=== PATIENT | male | born 1950 | race Caucasian/White ===

== ENCOUNTER → 2017-03-21 | Outpatient (CLI) | payer OTHER ==
[~2017-03-21] MED LIST: AMITRIPTYLINE H10 M3 PO; BACLOFEN 10MG T10 MG PO; CARISOPRODOL 3350 MG PO; CRESTOR5 MG PO; CYMBALTA60 MG PO; FEXOFENADINE PO; FLOMAX0.4 MG PO; FLONASE 0.05%50 MCG NASAL; HYDROCODON-ACE1 EAC8 PO; INHALER; LIORESAL 10 MG10 MG PO; MULTIVITAMIN W1 EAC1 PO; NEURONTIN600 MG PO; PROAIR HFA8.5 GM INH; STIOLTO RESPIMAT4 GM INH
== END ==
LOC: M.RAD 15:15
DX: R05 Cough (principal); R09.89 Other specified symptoms and signs involving the circulatory and respiratory systems; R07.89 Other chest pain

== ENCOUNTER → 2017-07-19 | Outpatient (CLI) | payer OTHER ==
--- NOTE | 2017-08-11 15:18 | PAINCON ---
[address] [address] PAIN MANAGEMENT CONSULTATION Name: STEPHANIE LOMBARDI Room: [facility] Yamila.#: [id number] Admission: 07/19/17 Attend Phys: Samina Henderson MD Discharge: Date of : 52 Report #: [id number] THIS REPORT FOR: //name// CC: Noemi Henderson DATE OF SERVICE: 07/19/2017 CHIEF COMPLAINT: Constant spasms of the low back and there is popping and moving sensation in my back, it has been fused before. FOLLOWUP HISTORY: The patient is a 66-year-old gentleman who has been referred to the pain clinic for evaluation. The patient has been having pain and discomfort, which has been problematic since about April 2017. He has a history of back problems. He has undergone surgery for this. Notes that his pain is worse when he is active as well as when he is bending. He states that he had a surgery in the low back area. Surgery entail the lower approximately 3-4 area. The patient after the surgery was noted to have some worsening of his symptoms. States that he had some paralysis noted. He was then taken to surgery, second time. The initial surgery was L3 through S1. He then underwent L1-L2 as well. This has left him with fusion of L1 through S1. He has noted some popping sensation in the upper portion of his back. This has caused him some consternation. He has been experiencing some muscle spasms. Does have a spinal cord stimulator in place. He thinks it is about 50% effective in helping with pain and discomfort. 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 States that he has some ____ numbness. Has had some numbness on the right side of his anus. His current pain score is a 4/10. It can vary between 2-7 during the course of time. ALLERGIES: No known drug allergies. MEDICATIONS: Albuterol, ProAir 1 puff, Baclofen 10 mg t.i.d. 2 tablets t.i.d., Soma 350 mg t.i.d., Cymbalta 60 mg b.i.d., Flonase 0.05% nasal spray, Neurontin 600 mg 1-1/2 tablet t.i.d., hydrocodone 7.5 mg q.8 hours p.r.n., folic acid/multivitamin, Crestor 5 mg, Flomax 0.4 mg, Stiolto Respimat inhaler spray 2 puffs b.i.d., and fexofenadine 10 mg t.i.d. PAST MEDICAL HISTORY: Asthma, COPD, joint disease/arthritis of the knees, and skin cancer. PAST SURGICAL HISTORY: 1. On 06/21/2011, spinal cord stimulator implant. 2. On 09/15/2008, drain reinserted, [place] [address] PAIN MANAGEMENT CONSULTATION Name: STEPHANIE LOMBARDI [id number] Admission: 07/19/17 Attend Phys: Samina Henderson MD Discharge: Date of : 52 Report #: [id number] 3. On 09/14/2008, L1 through S1 fusion. 4. On 09/11/2008, L3 through S1 fusion. 5. On 05/22/2008, L1-L2 open laminectomy, L3-L4 laminectomy, foraminotomy, and microdiskectomy. 6. In 2005, right shoulder rotator cuff, labrum, biceps tendon repair. 7. In July 2002, anterior cervical disk fusion C5, C6, C7.. 8. In 1991, right knee ACL reconstruction. 9. In 1986, deviated septum repair. 10. In 1984, left knee arthroscopy, meniscus repair. 11. In 1977, vasectomy. 12. In 1970, right knee meniscus repair. 13. In 1959, appendectomy. 14. In 1957, tonsillectomy. 15. In 1954, adhesion removal. 16. In 1953, hernia repair. SOCIAL HISTORY: The patient is a retired community outreach worker, retired in 2008. REVIEW OF SYSTEMS: CONSTITUTIONAL: Generally good health. A 12-point review, wears glasses, COPD, shortness of breath, joint pain, joint stiffness, back pain, numbness, and tingling sensation. LABORATORY DATA: No new laboratory values are available at the time of our interview. X-ray of lumbar dated 12/15/2016, lumbar spine radiographs finding, no compression fracture. Lumbar lordosis normal. No anterior or retrolisthesis. Mild disk space narrowing T12-L1. There is bilateral pedicle screw and sebastian fixation L1 through S1. No evidence of hardware complication. Mild spondylosis. No postoperative complications. CT of the lumbar spine dated 06/22/2017: 1. L1-L2, there are surgical changes of laminectomy and posterior fusion. There is no evidence of central canal or neural foraminal stenosis. Thecal sac 1.5 cm AP. 2. L2-L3, there are surgical changes of laminectomy and posterior fusion. There is no evidence of central or neural foraminal stenosis. Thecal sac 1.5 cm AP. 3. L3-L4, there are surgical changes of laminectomy and posterior fusion. There is no evidence of central canal or neural foraminal stenosis. Thecal sac 1.3 cm AP. 4. L4-L5, there are surgical changes of laminectomy and posterior fusion. There is no evidence of central canal or left neural foraminal narrowing. Mild right foraminal endplate osteophyte formation results in mild narrowing of the anterior inferior right neural foramen. Thecal sac 1.2 cm AP. 5. L5-S1. There are surgical changes of laminectomy and posterior fusion. There is no evidence of central canal or neural foraminal narrowing. Thecal sac 1.5 cm AP. [place] [address] PAIN MANAGEMENT CONSULTATION Name: STEPHANIE LOMBARDI Room: [facility]#: [id number] Admission: 07/19/17 Attend Phys: Samina Hendersno MD Discharge: Date of : 52 Report #: [id number] PAIN CLINIC ASSESSMENT: 1. History of osteoarthritic changes in the lower back with surgeries. 2. Height 5 feet 10, weight 221 pounds, BMI 31. 3. Vital signs: Blood pressure 120/76, heart rate 82, respiratory rate 16, room air saturation 95, temperature 98.4. 4. Pain intensity 04/23. 5. Fall risk. The patient has not fallen in the last 3 months. 6. Blood thinner. The patient is not on a blood thinning agent. 7. History of hypertension. The patient is not being treated for hypertension. 8. Opioid therapy greater than 6 weeks. The patient is not routinely on an opioid medication. 9. Risk assessment tool. 10. Functional assessment tool. 11. Recreational drug use. The patient denies use of recreational drugs. 12. Tobacco: The patient does have COPD. Denies use of tobacco at this juncture. 13. Alcohol use. The patient denies use of alcoholic beverages. PHYSICAL EXAMINATION: GENERAL: The patient is a well-developed white male, appears his stated age. He is alert and oriented x 3. Affect is appropriate. HEENT: Normocephalic, atraumatic. Extraocular eye muscles intact. Sclerae nonicteric. Mucous membranes are moist. Hearing within normal limits. NECK: Without adenopathy. Good range of motion. HEART: Regular rate. S1, S2. ABDOMEN: Nontender. MUSCULOSKELETAL: Without significant kyphosis or scoliosis. The patient has well-healed scar in the midline portion of his back from L1 to the dorsum of the sacrum. Has complained of pain and discomfort, burning discomfort in the left and right paraspinous muscle area in the lumbar areas. Has some pain and discomfort radiating in the L3-L4 area of his thigh left and right. Has a perception of some movement in the upper lumbar area with shifting of his back. IMPRESSION: 1. History of low back fusion from L1 through S1. 2. Allergic rhinitis. 3. Idiopathic peripheral neuropathy. 4. Mixed hyperlipidemia. 5. Spinal stenosis of the lumbar area. 6. Mixed anxiety disorder. 7. Obstructive sleep apnea. 8. Seasonal allergic rhinitis. 9. Chronic obstructive pulmonary disease. RECOMMENDATION: The patient has pain and discomfort radiating down into his low [facility] [address] [place] [address] PAIN MANAGEMENT CONSULTATION Name: STEPHANIE LOMBARDI Room: [facility] Jaydon#: [id number] Admission: 07/19/17 Attend Phys: Samina Henderson MD Discharge: Date of : 52 Report #: [id number] back with some pain radiating above the L3-L4 dermatomal distribution. The patient has had significant surgery in his low back area. He is concerned about the perceive movement in his low back area. He is not riding his lawnmower and other activities which caused some mid back discomfort. He does experience muscle spasms. We will have the patient try amitriptyline 10 mg 2 tablets at bedtime. We will have him try baclofen. We may consider transforaminal injections in the area of the L3-L4 dermatomal distribution to see whether or not the pain in his legs would improve. The patient continues to use his stimulator. Somewhat of a difficult case given that the patient had such an extensive amount of surgery and scar tissue which can develop after surgery in his low back area. The patient will continue with his hydrocodone. We would like to thank you for letting us participate in his care. Hopefully, we can find some remedies to help improve his level of comfort. <ELECTRONICALLY SIGNED> By: Samina Henderson MD 08/11/17 1518 1558 Lilian Henderson MD /[facility]
== END ==
LOC: M.PC 01:58
DX: M48.061 Spinal stenosis, lumbar region without neurogenic claudication (principal); J44.9 Chronic obstructive pulmonary disease, unspecified; E78.2 Mixed hyperlipidemia; M54.5 Low back pain; G60.9 Hereditary and idiopathic neuropathy, unspecified; G47.33 Obstructive sleep apnea (adult) (pediatric); F41.3 Other mixed anxiety disorders; M13.862 Other specified arthritis, left knee; M13.861 Other specified arthritis, right knee

== ENCOUNTER → 2017-08-16 | Outpatient (CLI) | payer OTHER ==
--- NOTE | 2017-09-14 14:16 | PAINCON ---
[address] [address] PAIN MANAGEMENT CONSULTATION Name: STEPHANIE LOMBARDI Room: [facility] ERIKA Jaydon#: [id number] Admission: 08/16/17 Attend Phys: Samina Henderson MD Discharge: Date of : 52 Report #: [id number] THIS REPORT FOR: //name// CC: Noemi Henderson DATE OF SERVICE: 08/16/2017 FOLLOWUP COMPLAINT: Here for an epidural injection. FOLLOWUP HISTORY: The patient is a 66-year-old gentleman who has been seen in the pain clinic because of chronic pain. He has had problems with his low back. He has undergone back surgery with placement of pedicle screws and rodding. He rates his pain as a 5/10 today. He feels like the pain is a little worse. He desire to have an epidural steroid injection to see whether or not his pain would improve. He has been able to do gardening for any period of time. He continues to use of his medications and muscle relaxants. He finds that hydrocodone and gabapentin are helpful, but his pain still continues to be problematic. Walking, sitting, standing, going from a sitting to standing, bending and lifting are all problematic. Finds his medications helpful. As you recall, he does have a dorsal column stimulator in place. He does feel that there is some benefit from this. He has returned for treatment today. ALLERGIES: No known drug allergies. MEDICATIONS: Albuterol, ProAir 1 puff, baclofen 10 mg 2 tablets t.i.d., Soma 350 mg t.i.d., Cymbalta 60 mg b.i.d., Flonase 0.05% nasal spray, and Neurontin 600 mg 1-1/2 tablet t.i.d., hydrocodone 7.5 mg q.8 hours p.r.n., folic acid/multivitamin, Crestor 5 mg, Flonase 0.4 mg, Stiolto Respimat inhaler spray 2 puffs b.i.d., fexofenadine 10 mg t.i.d. PAIN CLINIC ASSESSMENT: 1. History of osteoarthritis. The patient does have arthritic change in the lower portion of his back and has undergone surgeries: 2. Height 5 feet 10 inches, weight 222 pounds, BMI is 31. 3. Vital signs: Blood pressure 133/78, heart rate 75, respiratory rate 16, room air saturation 94%, temperature 98.1. 4. Pain score 05/10. 5. Fall risk. The patient has not fallen in the last 3 months. 6. Blood thinner. The patient is not on a blood thinning medication. 7. History of hypertension. The patient is not being treated for hypertension. 8. Opioid therapy greater than 6 weeks. The patient is not routinely using opioid medication. 9. Risk assessment tool. 10. Functional assessment tool. 11. Recreational drug use. The patient denies [place] [address] PAIN MANAGEMENT CONSULTATION Name: STEPHANIE LOMBARDI Room: [facility]#: [id number] Admission: 08/16/17 Attend Phys: Samina Henderson MD Discharge: Date of : 52 Report #: [id number] 12. Tobacco: The patient denies use of tobacco at this juncture. He does have COPD. 13. Alcohol use. The patient denies use of alcoholic beverages. PHYSICAL EXAMINATION: GENERAL: The patient is a well-developed white male, appears stated age. He is alert and oriented x 3. Affect is appropriate. HEENT: Normocephalic, atraumatic. Extraocular eye muscles intact. Sclerae nonicteric. Mucous membranes are moist. Hearing within normal limits. NECK: Without adenopathy. Good range of motion. HEART: Regular rate. S1, S2. ABDOMEN: Nontender. MUSCULOSKELETAL: Without significant kyphosis or scoliosis. The patient does have some well-healed scar in the midline portion of his back from approximately L1 down to the dorsum of sacrum. He complains of pain and discomfort. Complains of a burning discomfort in his left and right paraspinous muscle area. He has pain and discomfort radiating down the L3-L4 area and L4-L5 distribution today. He still has a perception that some of the bones in his back are shifting with motion. IMPRESSION: 1. History of low back fusion, L1 through S1. 2. Allergic rhinitis. 3. Idiopathic peripheral neuropathy. 4. Mixed hyperlipidemia. 5. Spinal stenosis of lumbar spine. 6. Mixed anxiety disorder. 7. Obstructive sleep apnea. 8. Seasonal allergic rhinitis. 9. Chronic obstructive pulmonary disease. RECOMMENDATIONS: We discussed treatment options with the patient. Risks and benefits of a transforaminal epidural steroid injection were discussed. Possible complications of the procedure include but are not limited to infection, increased muscle soreness, headache, bleeding, worsening of pain for a paresis. The patient elects to proceed. PROCEDURE NOTE: The patient was placed in the prone position. Fluoroscopy was used to identify the L4-L5 areas, left and right with fluoroscopy. An anterior, posterior as well as lateral imaging were employed. The patient's back was sterilely prepped with a Betadine solution. It was allowed to dry. A 20-gauge spinal needle was then advanced into the appropriate area after it had been anesthetized with 0.25% bupivacaine on the left and a similar procedure with anesthetizing of the right side. Both 20-gauge spinal needles were advanced. One left and the other on the right side. After appropriate placement was noted. Using fluoroscopy in anterior, posterior as well as lateral 0.25% [place] [address] PAIN MANAGEMENT CONSULTATION Name: STEPHANIE LOMBARDI [id number] Admission: 08/16/17 Attend Phys: Samina Henderson MD Discharge: Date of : 52 Report #: [id number] bupivacaine was infiltrated. A total of 80 mg Depo-Medrol was injected on the left side and 80 mg on the right side. The patient tolerated the procedure well. He was then escorted to the Recovery Room. A Band-Aid was placed on his back. There was no bleeding. He remained there for an appropriate amount of time. A total of 25 seconds fluoroscopy time was used. The patient's pain score was 3 at the time of discharge. He will follow up in the future as needed. The patient did note some hungover type sensation. He will decrease his Elavil from 20 mg at bedtime to 10 mg and stop it if he continues to find a somewhat problematic. We would like to thank you for letting us participate in his care. We hope he continues to improve. <ELECTRONICALLY SIGNED> By: Samina Henderson MD 09/14/17 1416 1017 1926N. Bebo Henderson MD /alivia
== END | disposition home or self-care (01) ==
LOC: M.PC 05:31
DX: M51.16 Intervertebral disc disorders with radiculopathy, lumbar region (principal); J30.9 Allergic rhinitis, unspecified; E78.2 Mixed hyperlipidemia; G60.9 Hereditary and idiopathic neuropathy, unspecified; F41.3 Other mixed anxiety disorders; G47.33 Obstructive sleep apnea (adult) (pediatric); J44.9 Chronic obstructive pulmonary disease, unspecified; M19.90 Unspecified osteoarthritis, unspecified site; Z68.31 Body mass index [BMI] 31.0-31.9, adult; Z79.899 Other long term (current) drug therapy; Z98.890 Other specified postprocedural states; F11.20 Opioid dependence, uncomplicated

== ENCOUNTER → 2017-09-22 | Outpatient (CLI) | payer OTHER ==
--- NOTE | 2017-10-12 16:41 | PAINCON ---
[address] [address] PAIN MANAGEMENT CONSULTATION Name: STEPHANIE LOMBARDI Room: [facility] ERIKA Interiano#: [id number] Admission: 09/22/17 Attend Phys: Samina Henderson MD Discharge: Date of : 52 Report #: [id number] THIS REPORT FOR: //name// CC: Noemi Henderson DATE OF SERVICE: 09/22/2017 FOLLOWUP COMPLAINT: "Here for the last injection really was helpful. I would like to have another." FOLLOWUP HISTORY: The patient is a 67-year-old gentleman who has been seen in the pain clinic because of chronic pain involving his low back. He has undergone back surgery. He has a number of pedicle screws and rods in place. He rates his pain as a 3/10. He underwent a transforaminal epidural steroid injection at the last visit. He noted benefit from that. He did quite well. About 2 weeks ago, he bent over and heard a pop. Since that time, he has continued to have some pain and discomfort in the low back area. Continues to use baclofen, hydrocodone, gabapentin, and Elavil to help control his pain. Feels that he is about 80% improvement with his pain overall. At this juncture, he would like to undergo another epidural steroid injection. He had no complications from the procedure. No problem with his bowel or bladder. He also has a dorsal column stimulator in place as you recall. Feels that this continues to be beneficial as well. ALLERGIES: No known drug allergies. MEDICATIONS: Albuterol, ProAir 1 puff, baclofen 10 mg 2 tablets t.i.d., Soma 350 mg t.i.d., Cymbalta 600 mg b.i.d., Flonase 0.05% nasal spray, Neurontin 600 mg 1-1/2 tablets t.i.d., hydrocodone 7.5 mg q.8 hours, folic acid/multivitamins, Crestor 5 mg, Flonase 0.4 mg, Stiolto Respimat inhaler 2 puffs b.i.d., and fexofenadine 10 mg t.i.d. PAIN CLINIC ASSESSMENT: 1. History of osteoarthritis. The patient does have arthritic changes in the lower portion of his back and has undergone surgery. 2. Height 5 feet 10 inches, weight 220 pounds. BMI is 31. 3. Blood pressure 140/85, heart rate 80, respiratory rate 16, room air saturation 95%, temperature 98.4. 4. Pain score 3/10. 5. Fall risk. The patient has not fallen in the last 3 months. 6. Blood thinner. The patient is not on a blood thinning medication. 7. History of hypertension. The patient is not being treated for hypertension. 8. Opioid therapy greater than 6 weeks. The patient is not routinely using opioid medication. 9. Risk [place] [address] PAIN MANAGEMENT CONSULTATION Name: STEPHANIE LOMBARDI Room: [facility]#: [id number] Admission: 09/22/17 Attend Phys: Samina Henderson MD Discharge: Date of : 52 Report #: [id number] 10. Functional assessment tool. 11. Recreational drug use. The patient denies use of recreational drugs. 12. Tobacco: The patient denies use of tobacco at this juncture. He does have COPD. 13. Alcohol: The patient denies use of alcoholic beverages. PHYSICAL EXAMINATION: GENERAL: The patient is a well-developed, well-nourished white male, appears his stated age. He is alert and oriented x 3. His affect is appropriate. HEENT: Normocephalic, atraumatic. Extraocular eye muscles intact. Sclerae nonicteric. Mucous membranes are moist. Hearing is within normal limits. NECK: Without adenopathy. Good range of motion. HEART: Regular rate. S1, S2. LUNGS: Without rhonchi or rales. ABDOMEN: Nontender. MUSCULOSKELETAL: Without significant kyphosis, scoliosis or abnormality. The patient does have a well-healed scar in the lumbar area. Approximately starting at the L1 area down to the dorsum of sacrum has pain and discomfort. Complains of some pain and discomfort in the left as well as the right paraspinous muscle area. Has pain and discomfort radiating down the L3-L4 area and L4-L5 distribution. Still has a perception that bones in his back are shifting. IMPRESSION: 1. History of low back pain with fusion L1 through S1. 2. Allergic rhinitis. 3. Idiopathic peripheral neuropathy. 4. Mixed hyperlipidemia. 5. Spinal stenosis of lumbar spine. 6. Mixed anxiety disorder. 7. Obstructive sleep apnea. 8. Seasonal allergic rhinitis. 9. Chronic obstructive pulmonary disease. RECOMMENDATIONS: We discussed treatment options with the patient. Risks and benefits of transforaminal epidural steroid injection were again reviewed. Possible complications of the procedure were discussed and the patient elects to proceed. Complications include possibility of infection, bleeding, worsening of pain, no improvement in pain, nerve paralysis and the patient elects to proceed. PROCEDURE NOTE: The patient was taken to the procedure room. He was assisted in getting on the examination table. A pillow was placed under his abdomen to bolster and improved positioning. Fluoroscopy used in the anterior, posterior as well as lateral viewing were instituted. A transforaminal approach on the left and right L4 areas was performed. A total of 80 mg Depo-Medrol was placed on the left side after appropriate positioning and 80 mg of Kenalog were injected on the right side. The patient tolerated the [place] [address] PAIN MANAGEMENT CONSULTATION Name: STEPHANIE LOMBARDI Room: [facility] LettyTeri#: [id number] Admission: 09/22/17 Attend Phys: Samina Henderson MD Discharge: Date of : 52 Report #: [id number] were no complications. He remained in the pain clinic for an appropriate amount of time. He will follow up in the near future. We would like to thank you for letting us participate in his care. We hope he continues to improve. <ELECTRONICALLY SIGNED> By: Samina Henderson MD 10/12/17 1641 1833 2055N. Bebo Henderson MD /nt
== END | disposition home or self-care (01) ==
LOC: M.PC 03:26
DX: M54.16 Radiculopathy, lumbar region (principal); M48.061 Spinal stenosis, lumbar region without neurogenic claudication; E78.2 Mixed hyperlipidemia; J44.9 Chronic obstructive pulmonary disease, unspecified; G60.9 Hereditary and idiopathic neuropathy, unspecified; F41.3 Other mixed anxiety disorders; G47.33 Obstructive sleep apnea (adult) (pediatric); J30.9 Allergic rhinitis, unspecified; Z98.890 Other specified postprocedural states; Z79.899 Other long term (current) drug therapy; Z79.891 Long term (current) use of opiate analgesic

== ENCOUNTER → 2017-10-24 | Outpatient (CLI) | payer OTHER | LOC: M.RAD 17:06 | DX: J06.9 Acute upper respiratory infection, unspecified (principal); M43.25 Fusion of spine, thoracolumbar region; R09.89 Other specified symptoms and signs involving the circulatory and respiratory systems; E78.5 Hyperlipidemia, unspecified; Z87.891 Personal history of nicotine dependence ==

== ENCOUNTER → 2017-11-03 | Outpatient (CLI) | payer OTHER ==
--- NOTE | 2017-11-28 10:00 | PAINCON ---
[address] [address] PAIN MANAGEMENT CONSULTATION Name: STEPHANIE LOMBARDI Room: [facility] LettyTeri#: [id number] Admission: 11/03/17 Attend Phys: Samina Henderson MD Discharge: Date of : 52 Report #: [id number] THIS REPORT FOR: //name// CC: Noemi Henderson DATE OF SERVICE: 11/03/2017 CHIEF COMPLAINT: Low back pain. HISTORY OF PRESENT ILLNESS: The patient is a 67-year-old gentleman who has been seen in the Pain Clinic because of lumbar radiculopathy. As you recall, he has had back surgery. He has undergone placement of rods and pedicle screws in his low back area. He was seen in the past. He has undergone transforaminal epidural steroid injections and gleaned benefits from these. At this juncture, the patient is suffering from bronchitis. He is on an antibiotic at this juncture. He felt that he received 80% improvement in the pain after the first injection. He has returned today for another injection. He feels that the amitriptyline, baclofen, hydrocodone, and gabapentin are helpful. He notes worsening of pain with activity such as walking, sitting, standing, bending, and twisting. He has returned today for treatment. ALLERGIES: No known drug allergies. CURRENT MEDICATIONS: Albuterol, ProAir 1 puff, baclofen 10 mg 2 tabs t.i.d., Soma 350 mg t.i.d., Cymbalta 600 mg b.i.d., Flonase 0.05% nasal spray, Neurontin 600 mg 1-1/2 tablets t.i.d., hydrocodone 7.5 mg q.8h., folic acid, multivitamins, Crestor 5 mg, Flonase 0.4 mg, Stiolto Respimat 2 puffs b.i.d., fexofenadine 10 mg t.i.d. PAIN CLINIC ASSESSMENT/PQRS: 1. History of osteoarthritis. The patient has had arthritic changes in the lower portion of his back and has undergone surgery. 2. Height 5 feet 10 inches, weight 225 pounds, BMI is 32. 3. Vital signs: Blood pressure 128/80, heart rate 89, respiratory rate 16, room air 96, and temperature 98.1. 4. Pain score 3/10. 5. Fall history: The patient has not fallen in the last 3 months. 6. Blood thinner. The patient is not on a blood thinning medication. 7. Hypertension. The patient has not been treated for hypertension. 8. Opiate therapy greater than 6 weeks. The patient does receive medications through the Pain Clinic from 1 source. 9. Risk assessment tool. 10. Functional assessment tool. 11. Recreational drug use. The patient denies use of recreational drugs. 12. Tobacco: The [place] [address] PAIN MANAGEMENT CONSULTATION Name: STEPHANIE LOMBARDI Room: [facility]#: [id number] Admission: 11/03/17 Attend Phys: Samina Henderson MD Discharge: Date of : 52 Report #: [id number] 13. Alcohol. The patient drinks alcohol on a weekly basis. PHYSICAL EXAMINATION: GENERAL: The patient is a well-developed, well-nourished white male. Appears his stated age. He is alert and oriented x 3. His affect is appropriate. HEENT: Normocephalic, atraumatic. Extraocular eye muscles intact. Sclerae nonicteric. Mucous membranes are normal. Hearing is within normal limits. NECK: Without adenopathy or JVD. Good range of motion. HEART: Regular rate. S1, S2. LUNGS: Clear to auscultation without rales or rhonchi. ABDOMEN: Nontender. MUSCULOSKELETAL: Without significant kyphosis, scoliosis, or lordosis. The patient does have some well-healed scar in the lower portion of his back. The scar starts at approximately L1 down to the sacrum. Complains of pain and discomfort with pain that is radiating down to the left leg as well as the right paraspinous muscle area. The patient has some discomfort radiating down the L3-L4 and L4-L5 area. Does feel that there is a shifting of bones in his back. IMPRESSION: 1. History of low back pain with fusion from L1 through S1. 2. Bronchitis, now on antibiotics. 3. Allergic rhinitis. 4. Idiopathic peripheral neuropathy. 5. Hyperlipidemia. 6. Spinal stenosis of lumbar spine. 7. Mixed anxiety disorder. 8. Obstructive sleep apnea. 9. Seasonal allergic rhinitis. 10. Chronic obstructive pulmonary disease. RECOMMENDATIONS: We discussed treatment options with the patient. Risks and benefits of an epidural steroid injection were again reviewed. Possible complications of the procedure were discussed. They include, but are not limited to infection, increased muscle soreness, headache, bleeding, worsening of pain, no improvement in pain and the patient elects to proceed. We discussed with the patient the possible complications of steroid use. It can decrease one's immunity. Given that the patient is on an antibiotic, we would recommend that he refrain from an injection until he has been fully treated for his bronchitis. At that time, he will return to the Pain Clinic at which time we would then proceed with a transforaminal epidural steroid injection. [address] [address] PAIN MANAGEMENT CONSULTATION Name: STEPHANIE LOMBARDI [id number] Admission: 11/03/17 Attend Phys: Samina Henderson MD Discharge: Date of : 52 Report #: [id number] We would like to thank you for letting us participate in his care. We hope he continues to improve. <ELECTRONICALLY SIGNED> By: Samina Henderson MD 11/28/17 1000 1530 1825N. Bebo Henderson MD /nt
== END ==
LOC: M.PC 01:45
DX: J40 Bronchitis, not specified as acute or chronic (principal); M54.5 Low back pain; J30.9 Allergic rhinitis, unspecified; G60.9 Hereditary and idiopathic neuropathy, unspecified; E78.5 Hyperlipidemia, unspecified; M48.061 Spinal stenosis, lumbar region without neurogenic claudication; F41.3 Other mixed anxiety disorders; G47.33 Obstructive sleep apnea (adult) (pediatric); J44.9 Chronic obstructive pulmonary disease, unspecified

== ENCOUNTER → 2017-11-03 | Outpatient (CLI) | payer OTHER | LOC: M.RAD 13:53 | DX: R05 Cough (principal); Z79.899 Other long term (current) drug therapy ==

== ENCOUNTER → 2017-11-15 | Outpatient (CLI) | payer OTHER ==
--- NOTE | 2017-12-28 15:49 | PAINCON ---
[address] [address] PAIN MANAGEMENT CONSULTATION Name: MARIA CSTEPHANIE E Room: [facility] Yamila.#: [id number] Admission: 11/15/17 Attend Phys: Samina Henderson MD Discharge: Date of : 52 Report #: [id number] THIS REPORT FOR: //name// CC: Noemi Henderson DATE OF SERVICE: 11/15/2017 PRIMARY CARE PHYSICIAN: Noemi Munoz MD FOLLOWUP: Here for an injection in the low back. HISTORY: The patient is a 67-year-old gentleman who has been followed in the pain clinic because of lumbar radiculopathy. As you recall, he has had a number of back surgeries. He has rods as well as pedicle screws in place. He has undergone an epidural steroid injection using the transforaminal approach. He has returned for an epidural steroid injection. He gleaned about 80% improvement from his pain at the last visit. He has now returned indicating that his pain, still is quite problematic. Finds that Soma, amitriptyline, baclofen and hydrocodone along with gabapentin are beneficial. He does have a spinal cord stimulator in place. Overall, things are going reasonably well and he has returned for an injection today. ALLERGIES: No known drug allergies. MEDICATIONS: Albuterol, ProAir 1 puff, baclofen 10 mg 2 tabs p.o. t.i.d., Soma 350 mg t.i.d., Cymbalta 600 mg b.i.d., Flonase 0.05% nasal spray, Neurontin 600 mg 1-1/2 tablet t.i.d., hydrocodone 7.5 mg q.i.d., or q. 8 hours, folic acid, multivitamins, Crestor 5 mg, Flonase 0.4 mg, Stiolto Respimat 2 puffs b.i.d., and fexofenadine 10 mg t.i.d. PAIN CLINIC ASSESSMENT/PQRS: 1. History of osteoarthritis. The patient has had arthritic changes in the lower portion of his back and has undergone surgery. 2. The patient is not being treated for rheumatoid arthritis. 3. Height 5 feet 10 inches, weight 220 pounds, BMI is 31.7. 4. Vital signs: Blood pressure 132/76, heart rate 74, respiratory rate 16, room air saturation 96%, temperature 98.2. 5. Pain score 2/10. 6. Fall history: The patient has not fallen in the last 3 months. 7. Blood thinner. The patient is not on a blood thinning medication. 8. Hypertension. The patient is not being treated for hypertension. 9. Opioid therapy greater than 6 weeks. The patient does receive medication from the pain clinic from one source. 10. Risk assessment tool. 11. [place] [address] PAIN MANAGEMENT CONSULTATION Name: STEPHANIE LOMBARDI [facility] [id number] Admission: 11/15/17 Attend Phys: Samina Henderson MD Discharge: Date of : 51 Report #: [id number] 12. Recreational drug use. The patient denies use of recreational drugs. 13. Tobacco: The patient denies use of tobacco. 14. Alcohol: The patient denies alcoholic beverages other than on a weekly basis. PHYSICAL EXAMINATION: GENERAL: The patient is a well-developed, well-nourished white male. Appears his stated age. He is alert and oriented x 3. His affect is appropriate. HEENT: Normocephalic, atraumatic. Extraocular eye muscles intact. Sclerae nonicteric. Mucous membranes are moist. Hearing is within normal limits. NECK: Without adenopathy or JVD. Good range of motion. HEART: Regular rate. S1, S2. LUNGS: Clear to auscultation without rales or rhonchi. ABDOMEN: Nontender. Bowel sounds positive. MUSCULOSKELETAL: Without significant kyphosis, scoliosis or lordosis. The patient does have some well-healed scars in the lower portion of his back. These are in the midline area from L1 to the sacrum. The patient complains of pain and discomfort radiating down to the left leg as well as some pain and discomfort in the right leg in the L4-L5 distribution. Also, L3-L4, there is still some signs of discomfort. The patient has had some perception of some shift in the bones in his back. IMPRESSION: 1. History of low back pain status post fusion L4 through S1. 2. Bronchitis, improved. 3. Allergic rhinitis. 4. Idiopathic peripheral neuropathy. 5. Hyperlipidemia. 6. Spinal stenosis of the lumbar spine. 7. Mixed anxiety disorder. 8. Obstructive sleep apnea. 9. Seasonal allergic rhinitis. 10. Chronic obstructive pulmonary disease. RECOMMENDATIONS: We discussed treatment options with the patient. Risks and benefits of an epidural steroid injection using the transforaminal approach were described. Possible complication of the procedure, which could include infection, increased pain, no improvement in pain, spinal headache, bleeding and increased muscle soreness were reviewed. At this juncture, the patient feels that the benefits outweigh the possible complications and has elected and voices a desire to proceed. The patient states that he has not had a flu shot in the last 2 weeks. PROCEDURE NOTE: The patient was assisted in getting on the examination table. Fluoroscopy using anterior, posterior as well as lateral viewing were implemented. The left and right side were sterilely prepped with a Betadine [facility] [address] [place] [address] PAIN MANAGEMENT CONSULTATION Name: MARIA CSTEPHANIE Room: [facility]#: [id number] Admission: 11/15/17 Attend Phys: Samina Henderson MD Discharge: Date of : 52 Report #: [id number]. On the right at the L4-L5 interspace 0.25% bupivacaine was infiltrated. A 20-gauge spinal needle was then directed into the area of the L4-L5 target area. Anterior and posterior viewing indicated appropriate placement. Total of 80 mg Depo-Medrol was injected. A 0.25% bupivacaine had been used to infiltrate this area. The contralateral side at L4-L5 was treated in a like fashion. A 25-gauge needle was used to provide a skin wheal. A 20-gauge spinal needle was then directed in the area of the L4-L5 target zone. There was no complaint or paresthesia during the procedure. Again a total of 80 mg Depo-Medrol was injected. The patient tolerated the procedure well. There were no complications. He was taken to the recovery room. He remained in the recovery room for an appropriate amount of time. There were no complications. He will follow up as needed. Pain decreased to 0 at the time of discharge. Total of 41 seconds fluoroscopy time was used. We would like to thank you for letting us participate in his care. We hope he continues to improve. <ELECTRONICALLY SIGNED> By: Samina Henderson MD 12/28/17 1549 1331 2213N. Bebo Henderson MD /PMT
== END | disposition home or self-care (01) ==
LOC: M.PC 04:50
DX: M54.16 Radiculopathy, lumbar region (principal); Z79.899 Other long term (current) drug therapy

== ENCOUNTER 2018-06-14 15:17 | Inpatient (IN) | payer OTHER ==
[~2018-06-14] VITALS: Ht 177.8 cm; Wt 99.8 kg
[2018-06-14 15:20] VITALS: BP 186/98
[2018-06-14 15:51] LABS: APTT 25.1 Seconds (25.0-31.3); PROTIME 10.2 Seconds (9.20-11.50)
[2018-06-14 15:54] LABS: ABSOLUTE BASOPHILS 0.1 thou/uL (0.0-0.2); ABSOLUTE EOSINOPHILS 0.2 thou/uL (0.0-0.7); ABSOLUTE LYMPHOCYTES 2.3 thou/uL (0.8-5.3); ABSOLUTE MONOCYTES 0.7 thou/uL (0.0-1.2); ABSOLUTE NEUTROPHILS 4.6 thou/uL (1.6-8.1); BASOPHILS 0.7 %; HEMATOCRIT 43.5 % (42.0-52.0); HEMOGLOBIN 14.9 gm/dL (14.0-18.0); LYMPHOCYTES 29.4 %; MCH 28.5 pg (26.0-34.0); MCHC 34.3 g/dL (28.0-37.0); MCV 83.2 fL (80.0-100.0); MONOCYTES 9.1 %; MPV 8.5 fl. (7.2-11.1); NUCLEATED RBCS 0 /100WBC; PLATELET COUNT* 257 thou/uL (150-400); POLYS 58.8 %; RBC 5.23 mil/uL (4.50-6.00); RDW-CV 14.2 % (10.5-14.5); WBC 7.8 thou/uL (4.0-11.0)
[2018-06-14 16:08] LABS: ANION GAP 7 mmol/L (7-16); BUN 13 mg/dL (7-18); CALCIUM 9.1 mg/dL (8.5-10.1); CHLORIDE 105 mmol/L (98-107); CO2 30 mmol/L (21-32); GLUCOSE 88 mg/dL (70-99); POTASSIUM 4.1 mmol/L (3.5-5.1); SODIUM 142 mmol/L (136-145); TROPONIN-I LEVEL <0.06 ng/mL (<0.06)
[2018-06-14 16:11] LABS: ALBUMIN 3.9 g/dL (3.4-5.0); ALKALINE PHOSPHATASE 80 U/L (46-116); LIPASE 109 U/L (73-393); MAGNESIUM 2.1 mg/dL (1.8-2.4); NT-PRO BRAIN NAT PEPTIDE 13 pg/mL (<300); SGOT 26 U/L (15-37); SGPT 36 U/L (30-65); TOTAL BILIRUBIN 0.4 mg/dL (<0.1-1.0); TOTAL PROTEIN 7.7 g/dL (6.4-8.2)
[2018-06-14 17:35] VITALS: BP 125/86
[2018-06-14 17:59] VITALS: BP 135/89
--- NOTE | 2018-06-14 19:26 | NUR ---
ASSUMED PT CARE 1740, PT CAME FROM ER , PT ADMITTED FOR CHEST PAIN . VSS, ADMISSION ASSESSMENT DONE. PT AOX4, UP AD ANUP. O2 SAT 90'S RA. TRACING SR ON TELE. PT COMPLAINS OF BACK PAIN, COCCYX, LEFT THIGH. MEDS GIVEN FOR PAIN. PT IV ACCESS INTACT. LAST BM 06/13/18, ABDOMEN SOFT AND ROUND. LUNG SOUND CLEAR. ORIENTED AND SITUATED TO ROOM, CALL LIGHT WITHIN REACH. HOURLY ROUNDING, NPO MIDNIGHT. GIVE REPORT TO MIRNA WILLETT. WILL CONTINUE TO MONITOR.
--- NOTE | 2018-06-14 19:33 | NUR ---
I HAVE REVIEWED AND AGREE WITH THE CHARTING OF NEAL Jarquin RN ON 06/14/18
[2018-06-14 19:50] VITALS: BP 126/80
[2018-06-15] VITALS: BP 115/68
--- NOTE | 2018-06-15 03:27 | NUR ---
RECIEVED REPORT AND ASSUMED CARE AT 1900. WEB SERVICES ARCHITECT IN PLACE. VITAL SIGNS STABLE. PT IS UP ADLIB. PT HAS CHRONIC LOWER BACK DOWN TO LEFT THIGH PAIN AND PRN PAIN MEDS GIVEN ORDERED. ASSESSMENT COMPLETED, DISCUSSED PLAN OF CARE, PT UNDERSTANDS. BED LOCKED AND CALL LIGHT WITHIN REACH. FALL PRECAUTIONS IN PLACE. HOURLY ROUNDING DONE AND ALL NEEDS MET. NURSING WILL CONTINUE TO MONITOR.
[2018-06-15 04:00] VITALS: BP 119/72
[2018-06-15 07:30] VITALS: BP 133/77
--- NOTE | 2018-06-15 10:20 | EKG ---
[place] [address] ELECTROCARDIOGRAM REPORT Name: STEPHANIE LOMBARDI Room: [address] ADM IN .R.#: [id number] Admission: 06/14/18 Attend Phys: Edwige Camarena MD Discharge: Date of : 52 Report #: [id number] THIS REPORT FOR: //name// [facility] ED Test Date: 2018-06-14 Test Time: 15:21:01 Pat Name: STPEHANIESofía LOMBARDI Department: Room: [facility] Gender: M Computer Security Coordinator: : 1950 Requested By: Carlos Peguero Order Number: [id number] MD: Jose Enrique Clement Measurements Intervals [place] Rate: 78 P: 78 CT: 152 QRS: -56 QRSD: 95 T: 54 QT: 387 QTc: 441 Interpretive Statements Sinus rhythm Left anterior fascicular block Abnormal R-wave progression, early transition Compared to ECG 07/26/2007 11:57:23 no change Electronically Signed On 06-15-2018 10:20:41 CDT by Jose Enrique Clement [email or web address] <ELECTRONICALLY SIGNED> By: Jose Enrique Clement MD, [facility] 06/15/18 1020 1521 1521 Jose Enrique Clement MD, [facility] /EPI
[2018-06-15 11:56] VITALS: BP 123/72
--- NOTE | 2018-06-15 12:11 | NUR ---
ASSUMED PT CARE AT 0730, AOX4, UP AD ANUP, O2 SAT AT 90'S RA. TRACING SR ON MULE DRIVER. LUNGS SOUND CLEAR. LAST BM 06/14/18, ABDOMEN SOFT AND ROUND. PT FOR STRESS TEST, CARDIAC ECHO TODAY. PT COMPLAINS OF COCCYX, BACK PAIN, L THIGH PAIN. PT IV ACCESS INTACT. VSS, AM ASSESSMENT CHARTED. MEDS GIVEN PER APR. CALL LIGHT WITHIN REACH, HOURLY ROUNDING. WILL CONTINUE TO MONITOR.
--- NOTE | 2018-06-15 13:13 | 2DMMODE ---
[place] [address] 2 D/M-MODE ECHOCARDIOGRAM Name: STEPHANIE LOMBARDI Room: [address] IN [facility]#: [id number] Admission: 06/14/18 Attend Phys: Edwige Camarena, Discharge: Date of : 52 Date of Service: 06/15/18 1313 Report #: [id number] THIS REPORT FOR: //name// APPROVED REPORT Study performed: 06/15/2018 11:01:43 EXAM: Comprehensive 2D, Doppler, and color-flow Echocardiogram Patient Location: In-Patient Room #: 230 Status: routine BSA: 2.17 HR: 82 bpm BP: 119/72 mmHg Rhythm: NSR Other Information Study Quality: Good Indications Chest Pain 2D Dimensions IVSd: 9.50 (7-11mm) LVOT Diam: 20.40 (18-24mm) LVDd: 46.24 mm PWd: 10.39 (7-11mm) Ascending Ao: 38.20 (22-36mm) LVDs: 26.57 (25-40mm) Aortic Root: 33.51 mm Volumes Left Atrial Volume (Systole) LA ESV Index: 26.30 mL/m2 Aortic Valve AoV Peak Carter.: 1.53 m/s AO Peak Gr.: 9.41 mmHg LVOT Max P.29 mmHg AO Mean Gr.: 4.90 mmHg LVOT Mean P.31 mmHg LVOT Max V: 1.60 m/s AO V2 VTI: 28.29 cm LVOT Mean V: 0.93 m/s LANDON (VTI): 3.02 cm2 LVOT V1 VTI: 26.10 cm Mitral Valve E/A Ratio: 1.13 MV Decel. Time: 180.26 ms MV E Max Carter.: 0.81 m/[place] [address] 2 D/M-MODE ECHOCARDIOGRAM Name: STEPHANIE LOMBARDI Room: [address] IN .R.#: [id number] Admission: 06/14/18 Attend Phys: Edwige Camarena, Discharge: Date of : 52 Date of Service: 06/15/18 1313 Report #: [id number] MV PHT: 52.28 ms MVA (PHT): 4.21 cm2 TDI E/Lateral E': 6.75 E/Medial E': 5.79 Medial E' Carter.: 0.14 m/s Lateral E' Carter.: 0.12 m/s Pulmonary Valve PV Peak Carter.: 1.24 m/s PV Peak Gr.: 6.16 mmHg Tricuspid Valve RAP Estimate: 5.00 mmHg TR Peak Gr.: 31.61 mmHg RVSP: 36.00 mmHg PA Pressure: 36.00 mmHg Left Ventricle The left ventricle is normal size. There is normal LV segmental wall motion. There is normal left ventricular wall thickness. Left ventricular systolic function is normal. LVEF is 60-65%. The left ventricular diastolic function is normal. Right Ventricle The right ventricle is normal size. The right ventricular systolic function is normal. Atria The left atrium size is normal. The right atrium size is normal. Aortic Valve Mild aortic valve sclerosis. No aortic regurgitation is present. There is no aortic valvular stenosis. Mitral Valve The mitral valve is normal in structure. Trace mitral regurgitation. No evidence of mitral valve stenosis. Tricuspid Valve The tricuspid valve is normal in structure. Trace tricuspid regurgitation. The RVSP is 35-40 mmHg. Pulmonic Valve The pulmonary valve is normal in structure. There is no pulmonic [place] [address] 2 D/M-MODE ECHOCARDIOGRAM Name: STEPHANIE LOMBARDI Room: [address] IN [facility]#: [id number] Admission: 06/14/18 Attend Phys: Edwige Camarena, Discharge: Date of : 52 Date of Service: 06/15/18 1313 Report #: [id number] Great Vessels The aortic root is normal in size. IVC is normal in size and collapses >50% with inspiration. Pericardium There is no pericardial effusion. <Conclusion> The left ventricle is normal size. There is normal left ventricular wall thickness. Left ventricular systolic function is normal. LVEF is 60-65%. The left ventricular diastolic function is normal. Trace mitral regurgitation. Trace tricuspid regurgitation. The RVSP is 35-40 mmHg. IVC is normal in size and collapses >50% with inspiration. <ELECTRONICALLY SIGNED> By: Darnell Cardona MD, FACC 06/15/18 1313 1313 1313 Darnell Cardona MD, FACC /INF
--- NOTE | 2018-06-15 13:48 | NUR ---
MET WITH PT, HE LIVES WITH . PT IS INDEPENDENT AND ACTIVE. HE USES CPAP AND SPINAL CORD STIMULATOR. DENIES NEEDS. TO HAVE STRESS TEST TODAY. HOPES TO GO HOME SOON
--- NOTE | 2018-06-15 14:56 | CARDNUC ---
[place] [address] CARDIAC NUCLEAR IMAGING REPORT Name: STEPHANIE LOMBARDI Room: [address] IN [facility]#: [id number] Admission: 06/14/18 Attend Phys: Edwige Camarena, Discharge: Date of : 52 Date of Service: 06/15/18 1455 Report #: [id number] THIS REPORT FOR: //name// APPROVED REPORT Study performed: 06/15/2018 08:20:00 Indication: Chest pain Patient Location: In-Patient Room #: 230 Stress Tech: Briseyda Cheatham Stress Nurse: Jeanette Osorio RN Ht: 5 ft 10 in Wt: 220 lbs BSA: 2.17 m2 BMI: 31.56 Medical History Medical History: hyperlipidemia Medications: atorvastatin Allergies: nkda Cardiac Risk Factors: age, hyperlipidemia Exercise History: Sedentary Resting Data Rest SPECT myocardial perfusion imaging was performed in supine position 60 minutes following the intravenous injection of 12.0 mCi of Tc-99m Sestamibi. Time of rest injection: 11:30 The images were gated to evaluate regional wall motion and calculate left ventricular ejection fraction. Administration Route: IV Administration Site: Right AC Pharmacologic Stress Pharmacologic stress test was performed by injecting Regadenoson 0.4 mg IV push over 10-15 seconds immediately followed by the intravenous injection of 33.2 mCi of Tc-99m Sestamibi. Time of stress injection: 13:25 Administration Route: IV Administration Site: Right AC Heart Rate at time of stress injection: 95 bpm. Gated Stress SPECT was performed 40 minutes after stress injection. The images were gated to evaluate regional wall motion and calculate left ventricular [place] [address] CARDIAC NUCLEAR IMAGING REPORT Name: STEPHANIE LOMBARDI Room: [address]#: [id number] Admission: 06/14/18 Attend Phys: Edwige Camarena, Discharge: Date of : 52 Date of Service: 06/15/18 1455 Report #: [id number] Prone imaging was performed. Stress Test Details Stress Test: Pharmacologic stress testing performed using 0.4 mg of regadenoson per 5 mL given IV over 10 seconds. Reason for pharmacologic stress test: physical limitation. HR Max Heart Rate (APMHR): 154 bpm Resting HR: 73 bpm Target HR (85% APMHR): 130 bpm Max HR Achieved: 95 bpm % of APMHR: 61 Recovery HR: 82 bpm BP Resting BP: 144/85 mmHg Max BP: 144/87 mmHg Recovery BP: 143/88 mmHg ECG Resting ECG: Sinus Rhythm Stress ECG: Sinus Tachycardia ST Change: None Arrhythmia: None Recovery ECG: Sinus Rhythm Recovery ST Change: None Recovery Arrhythmia: None Clinical Reason for Termination: Completed protocol Exercise duration: 0 min sec Exercise capacity: 1 METs The patient tolerated Lexiscan infusion without significant symptoms. Stress ECG Conclusion The baseline 12-lead EKG shows sinus rhythm without significant ST or T wave abnormality. EKGs obtained during and post Lexiscan show sinus rhythm and sinus tachycardia with no significant ST or T wave changes when compared to baseline. There were no stress-induced arrhythmias. Study Quality Study: Good Artifact: Mild Diaphragmatic artifact Study Data At rest, the left ventricular ejection fraction was 73%.. [place] [address] CARDIAC NUCLEAR IMAGING REPORT Name: STEPHANIE LOMBARDI Room: [address] IN ..#: [id number] Admission: 06/14/18 Attend Phys: Edwige Camarena, Discharge: Date of : 52 Date of Service: 06/15/18 1455 Report #: [id number] Post stress, the left ventricular ejection was 76%.. TID = 0.97. Perfusion Perfusion images obtained in the supine position at rest and post Lexiscan stress show photopenia in the inferior wall that resolves with post stress prone imaging testing diaphragmatic attenuation artifact. No other significant defects were identified. Wall Motion Normal left ventricular wall motion. Nuclear Conclusion ECG Findings: negative for ischemia Clinical Findings: negative for ischemia Nuclear Findings: negative for ischemia Exercise Capacity: not assessed Left Ventricular Function: normal Risk Study: low Myocardial perfusion images show no defect to suggest infarct or ischemia. Left ventricular systolic function appears normal on gated studies. This is a low risk study. <Conclusion> The baseline 12-lead EKG shows sinus rhythm without significant ST or T wave abnormality. EKGs obtained during and post Lexiscan show sinus rhythm and sinus tachycardia with no significant ST or T wave changes when compared to baseline. There were no stress-induced arrhythmias. <ELECTRONICALLY SIGNED> By: Darnell Cardona MD, [facility] 06/15/18 1455 1455 1455 Darnell Cardona MD, FACC /INF
[2018-06-15 15:44] VITALS: BP 159/88
[2018-06-15 16:04] VITALS: BP 159/88
[2018-06-15] MEDS ORDERED: OMEPRAZOLE20 M2 PO (16:04)
--- NOTE | 2018-06-15 16:46 | NUR ---
PT AOX4, UP AD ANUP, O2 SAT AT 90'S, SR ON TELE. DISCHARGED PLAN DISCUSS WITH THE PATIENT. MEDICATION PACKET GIVEN. PT HAD STRESS TEST AND CT CHEST. PT IV, TELE REMOVED. REMINDED TO FOLLOW UP WITH PCP. ALL THINGS CHECKED AND PACKED. LEFT THE UNIT 1655 WITH
--- NOTE | 2018-06-15 18:42 | NUR ---
I HAVE REVIEWED AND AGREE WITH THE ASSESMENT AND NOTES OF NEAL Olea RN ON 06/15/18
== END 2018-06-15 16:54 | disposition home or self-care (01) | DRG 311 ==
LOC: M.ERS 15:17 → M.2W 16:24 → M.TBA-ER 16:24 → M.2W 17:40
PROVIDERS: Family Medicine; ADMIT Internal Medicine
DX: I20.9 Angina pectoris, unspecified (principal); M54.9 Dorsalgia, unspecified; G62.9 Polyneuropathy, unspecified; J44.9 Chronic obstructive pulmonary disease, unspecified; E78.5 Hyperlipidemia, unspecified; N40.0 Benign prostatic hyperplasia without lower urinary tract symptoms; Z90.49 Acquired absence of other specified parts of digestive tract; Z79.82 Long term (current) use of aspirin; Z79.899 Other long term (current) drug therapy; Z87.891 Personal history of nicotine dependence

== ENCOUNTER → 2019-07-24 | Outpatient (CLI) | payer OTHER ==
[~2019-07-24] MED LIST changes: +OMEPRAZOLE20 M2 PO
--- NOTE | 2019-08-23 15:40 | PAINCON ---
[address] [address] PAIN MANAGEMENT CONSULTATION Name: MARIA CSTEPHANIE E [id number] Admission: 07/24/19 Attend Phys: Samina Henderson MD Discharge: Date of : 52 Report #: [id number] THIS REPORT FOR: //name// cc: Noemi Munoz MD, Katrina MD ~ THIS REPORT FOR: //name// CC: Noemi Henderson DATE OF SERVICE: 07/24/2019 CHIEF COMPLAINT: Low back pain. "I tripped over a fan a couple of weeks ago, felt a pop and has been terrible ever since." HISTORY: The patient is a 68-year-old gentleman who has been followed in the pain clinic because of lumbar radiculopathy. He has had back surgery. He has a spinal cord stimulator. States that the battery is . He was walking and tripped over a fan a couple of weeks ago. Since that time, he felt a pop in his back. Has noted pain and discomfort, which is radiating down into his legs. He does feel that his legs are weak at times. He has undergone epidural steroid injections in the past and found them beneficial. He does have rods and pedicle screws in the low back area. Prolonged walking, sitting, standing can all worsen his discomfort. He continues with his medications of hydrocodone, gabapentin, Soma and baclofen. He feels that another injection in the low back area would be beneficial and has returned for an injection today. ALLERGIES: No known drug allergies. CURRENT MEDICATIONS: Albuterol, ProAir 1 puff, baclofen 10 mg 2 tablets p.o. t.i.d., Soma 350 mg t.i.d., Cymbalta 600 mg b.i.d., Flonase 0.05% nasal spray, Neurontin 600 mg 1-1/2 tablets t.i.d., hydrocodone 7.5 mg q.i.d., folic acid, multivitamins, Crestor 5 mg, Flomax 0.4 mg, Stiolto Respimat 2 puffs b.i.d., fexofenadine 10 mg t.i.d. PAIN CLINIC ASSESSMENT AND PQRS: 1. History of osteoarthritis. The patient has had some arthritic changes in his back and has undergone surgery. 2. The patient is not being treated for rheumatoid arthritis. 3. Height 5 feet 10 inch, weight 211 pounds, BMI is 30.2. 4. Vital signs: Blood pressure 135/81, heart rate 75, respiratory rate 16, room air saturation is 97%, temperature 98.5. 5. Pain intensity, 4/10. 6. Fall history. The patient tripped couple of weeks ago, felt a pop in his [address] [place] [address] PAIN MANAGEMENT CONSULTATION Name: STEPHANIE LOMBARDI Room: [facility]#: [id number] Admission: 07/24/19 Attend Phys: Samina Henderson MD Discharge: Date of : 52 Report #: [id number] back. 7. Blood thinner. The patient is not on a blood thinning medication. 8. Hypertension. The patient is not being treated for hypertension. 9. Opioids greater than 6 weeks. The patient received medication from once source, the pain clinic. 10. Risk assessment tool, low for opioid use. 11. Functional assessment tool, reviewed. 12. Recreational drug use. The patient denies use of recreational drugs. 13. Tobacco. The patient denies use of tobacco. 14. Alcohol. The patient denies alcoholic beverages except on a weekly basis. PHYSICAL EXAMINATION: GENERAL: The patient is a well-developed, well-nourished, white male. Appears his stated age. He is alert and oriented x 3. His affect is appropriate. Speech is fluent. HEENT: Normocephalic, atraumatic. Extraocular eye muscles intact. Sclerae nonicteric. Mucous membranes are moist. NECK: Without adenopathy or JVD. HEART: Regular rate. S1, S2. LUNGS: Clear to auscultation without rhonchi or rales. ABDOMEN: Nontender. Bowels sounds positive. MUSCULOSKELETAL: Without significant scoliosis, kyphosis or lordosis. The patient does have some well-healed scars in the lower portion of his back. This is from the midline portion of L1 down to the sacrum. The patient complains of pain and discomfort with pain radiating down into his legs in the L4-L5 dermatomal distribution on the left as well as the right. IMPRESSION: 1. History of back pain, status post fusion of L4 through S1. 2. Bronchitis. 3. Allergic rhinitis. 4. Idiopathic peripheral neuropathy. 5. Hyperlipidemia. 6. Spinal stenosis of the lumbar spine. 7. Mixed anxiety disorder. 8. Obstructive sleep apnea. 9. Seasonal allergic rhinitis. 10. Chronic obstructive pulmonary disease. RECOMMENDATIONS: We discussed treatment options with the patient. Risks and benefits of an epidural steroid injection using the transforaminal approach were discussed. They include but are not limited to infection, worsening pain, no improvement in pain, nerve damage, bleeding. We also and discussed the caveat of covid 19 pandemic. Injections with steroids can decrease one's immune ability to mount an immune response. If the patient were to become infected, he may [address] [address] PAIN MANAGEMENT CONSULTATION Name: STEPHANIE LOMBARDI Room: [facility]#: [id number] Admission: 07/24/19 Attend Phys: Samina Henderson MD Discharge: Date of : 52 Report #: [id number] have a more difficult time with the virus. At this juncture, his pain is quite problematic and he elects to proceed. PROCEDURE NOTE: The patient was taken to the procedure area. He was then assisted in getting on examination table. His back was sterilely prepped with a Betadine solution. Fluoroscopy using anterior, posterior as well as lateral viewing were implemented. On the left and right side, the patient's back was sterilely prepped at the L4-L5 area. A skin wheal was placed on the right side. A 20-gauge spinal needle was then advanced into the area of the L4-L5 interspace. There was no CSF, heme or paresthesia. There was no complaint of pain or discomfort. After appropriate placement using anterior, posterior, lateral viewing were confirmed. A total of 80 mg Depo-Medrol was injected. A 2 mL of 0.25% bupivacaine was infiltrated into this area. The contralateral left side was then treated in a like fashion. A skin wheal was placed at the L4-L5 area. A transforaminal approach using a 20-gauge spinal needle was then used to gain access to the appropriate placement. Fluoroscopy using anterior as well as lateral viewing were used to confirm placement. A total of 80 mg Depo-Medrol was then injected. A 2 mL of 0.25% bupivacaine was injected. The patient tolerated the procedure well. There were no complications. Approximately 30 seconds of fluoroscopy time was used. The patient will follow up in the future as needed. We would like to thank you for letting us participate in his care. We hope he continues to improve. <ELECTRONICALLY SIGNED> By: Samina Henderson MD 08/23/19 1540 1813 0430N. Bebo Henderson MD /[facility]
== END | disposition home or self-care (01) ==
LOC: M.PC 10:00
PROVIDERS: ATTEND Anesthesiology Pain Medicine
DX: M54.16 Radiculopathy, lumbar region (principal); G89.29 Other chronic pain; E78.5 Hyperlipidemia, unspecified; N40.0 Benign prostatic hyperplasia without lower urinary tract symptoms; Z98.890 Other specified postprocedural states; Z79.899 Other long term (current) drug therapy; Z87.891 Personal history of nicotine dependence; Z90.49 Acquired absence of other specified parts of digestive tract

== ENCOUNTER → 2019-08-30 | Outpatient (CLI) | payer OTHER ==
[~2019-08-30] MED LIST changes: +DIPHENHIST50 MG PO; +NEURONTIN 400M400 M2 PO
--- NOTE | 2019-09-12 09:00 | PAINCON ---
[address] [address] PAIN MANAGEMENT CONSULTATION Name: MARIA CSTEPHANIE E [facility] [id number] Admission: 08/30/19 Attend Phys: Samina Henderson MD Discharge: Date of : 52 Report #: [id number] THIS REPORT FOR: //name// cc: Noemi Munoz MD, Katrina MD ~ THIS REPORT FOR: //name// CC: Noemi Henderson DATE OF SERVICE: 08/30/2019 CHIEF COMPLAINT: Pain in the low back area that is radiating down into the left and the right leg. HISTORY: The patient is a 69-year-old gentleman who has been seen in the pain clinic in the past because of lumbar radiculopathy. He has had back surgeries in the past. He has noted a recurrence in pain in the low back area. He has undergone epidural steroid injections in the past. These have been helpful. He now is having more pain and discomfort in the low back area. He has had back surgery with instrumentation and rods placed. He has gleaned up to 80% improvement in the past from epidural steroid injections. He has returned today for another treatment. Notes that the pain is worse with activity, walking, sitting, standing, climbing stairs. Feels his medications as well as heat have been beneficial. The patient does have a spinal cord stimulator in place. MEDICATIONS: Albuterol, ProAir 1 puff, Baclofen 10 mg 2 tablets p.o. t.i.d., Soma 350 mg t.i.d., Cymbalta 600 mg b.i.d., Flonase 0.05% nasal spray, Neurontin 600 mg 1-1/2 tablets t.i.d., hydrocodone 7.5 mg q.i.d., folic acid, multivitamins, Crestor 5 mg, Flomax 0.4 mg, Stiolto Respimat 2 puffs b.i.d., fexofenadine 10 mg t.i.d. PAIN CLINIC ASSESSMENT AND PQRS: 1. The patient has history of osteoarthritis. The patient has some arthritic changes in his back and has undergone surgery. 2. The patient is not being treated for rheumatoid arthritis. 3. Height 5 feet 10 inch, weight 210 pounds, BMI is 30. 4. Vital signs: Blood pressure 125/72, heart rate 76, respiratory rate 16, room air saturation is 98%, temperature is 98.2. 5. Pain intensity 4/10. 6. Fall history: The patient has not fallen since we saw him last. 7. Blood thinner. The patient is not on a blood thinning medication. 8. Hypertension. The patient is not being treated for hypertension. 9. Opioids greater than 6 weeks. The patient receives medication from the pain from one source. 10. Risk assessment tool, [place] [address] PAIN MANAGEMENT CONSULTATION Name: STEPHANIE LOMBARDI Room: [facility]#: [id number] Admission: 08/30/19 Attend Phys: Samina Henderson MD Discharge: Date of : 52 Report #: [id number] 11. Functional assessment tool reviewed. 12. Recreational drug use. The patient denies. 13. Tobacco: The patient denies. 14. Alcohol. The patient denies use of alcoholic beverages except on occasion. PHYSICAL EXAMINATION: GENERAL: The patient is a well-developed, well-nourished white male. Appears his stated age. He is alert and oriented x 3. His affect is appropriate. Speech is fluent. HEENT: Normocephalic, atraumatic. Extraocular eye muscles intact. Sclerae nonicteric. Mucous membranes are moist. NECK: Without adenopathy or JVD. The patient is wearing a mask. HEART: Regular rate. S1, S2. LUNGS: Clear to auscultation without rhonchi or rales. ABDOMEN: Nontender. Bowel sounds positive. MUSCULOSKELETAL: Without significant scoliosis, kyphosis or lordosis. The patient does have a well-healed scar in the lower portion of his back. Has an incision from L1 down to the sacrum. The patient complains of pain and discomfort that is radiating down into the L4-L5 dermatomal distribution on the left as well as the right. IMPRESSION: 1. History of back pain, status post fusion L4 through S1. 2. Bronchitis. 3. Allergic rhinitis. 4. Idiopathic peripheral neuropathy. 5. Hyperlipidemia. 6. Spinal stenosis of the lumbar spine. 7. Mixed anxiety disorder. 8. Obstructive sleep apnea. 9. Seasonal allergic rhinitis. 10. Chronic obstructive pulmonary disease. RECOMMENDATIONS: We discussed treatment options with the patient. Risks and benefits of an injection were reviewed. We again discussed the problems of nerve damage, bleeding, trauma, increased muscle soreness, worsening of pain. We also discussed the caveat of the COVID-19. Injections can decrease one's immune ability to mount a response. If the patient becomes infected with COVID-19, he may have more of difficulty with the virus. He elects to proceed. PROCEDURE NOTE: The patient was taken to the procedure area. He was then assisted in getting on the examination table. His back was sterilely prepped with a Betadine solution. Fluoroscopy using anterior, posterior as well as lateral viewing were implemented. On the left and right side, the patient's back was sterilely prepped with Betadine at L4-L5. A skin wheal was placed on the right side and the skin was anesthetized with a 25-gauge needle. [place] 20[place] [address] PAIN MANAGEMENT CONSULTATION Name: STEPHANIE LOMBARDI Room: [facility]#: [id number] Admission: 08/30/19 Attend Phys: Samina Henderson MD Discharge: Date of : 52 Report #: [id number] spinal needle was then advanced into the appropriate place between L4 and L5. There was no paresthesia. After appropriate placement, a total of 80 mg Depo-Medrol was injected. The opposite side was then anesthetized at the L4-L5 area. A 20-gauge spinal needle was then advanced into the appropriate place using fluoroscopy. After appropriate placement, a total of 80 mg triamcinolone was injected. The patient tolerated the procedure well. There were no complications. He remained in the pain clinic for an appropriate amount of time. Total of 30 seconds fluoroscopy time was used. We would like to thank you for letting us participate in his care. A 2 transforaminal epidural injections were provided. <ELECTRONICALLY SIGNED> By: Samina Henderson MD 09/12/19 0900 0901 1312N. Bebo Henderson MD /nt
== END | disposition home or self-care (01) ==
LOC: M.PC 04:12
PROVIDERS: ATTEND Anesthesiology Pain Medicine
DX: M54.5 Low back pain (principal); M19.90 Unspecified osteoarthritis, unspecified site; I10 Essential (primary) hypertension; E78.5 Hyperlipidemia, unspecified; F41.3 Other mixed anxiety disorders; G47.33 Obstructive sleep apnea (adult) (pediatric); J44.9 Chronic obstructive pulmonary disease, unspecified; Z79.899 Other long term (current) drug therapy; Z88.8 Allergy status to other drugs, medicaments and biological substances

== ENCOUNTER → 2019-10-23 | Outpatient (CLI) | payer OTHER ==
--- NOTE | 2019-10-25 10:21 | PAINCON ---
[address] [address] PAIN MANAGEMENT CONSULTATION Name: STEPHANIE LOMBARDI Room: [facility].#: [id number] Admission: 10/23/19 Attend Phys: Samina Henderson MD Discharge: Date of : 52 Report #: [id number] THIS REPORT FOR: //name// cc: Noemi Munoz MD, Katrina MD ~ THIS REPORT FOR: //name// CC: Noemi Henderson DATE OF SERVICE: 10/23/2019 CHIEF COMPLAINT: Return of low back pain. HISTORY: The patient is a 69-year-old gentleman who has been followed in the Pain Clinic because of lumbar radiculopathy. He has undergone epidural steroid injections using the transforaminal approach in the past. He returns today with complaints of pain, which has reoccurred. He had gleaned significant amount of improvement after the last injection. He has returned today with the desire to undergo another injection. He rates his pain as a 1-2. He finds that his medications of hydrocodone, gabapentin and Soma are beneficial as well. He notes that the pain is worse with activity. He has used heat as well as medications to help quell the pain and discomfort. He would like to proceed with another injection. ALLERGIES: No known drug allergies. CURRENT MEDICATIONS: Albuterol 1 puff p.r.n., Benadryl 50 mg 3 times daily, Cymbalta 60 mg t.i.d. for mood, Flonase 0.05% allergy spray, gabapentin 400 mg t.i.d., hydrocodone 7.5 mg one p.o. every 6 hours p.r.n., multivitamin with iron, omeprazole 20 mg, Crestor 5 mg, Flomax 0.4 mg, Stiolto inhaler 2 puffs b.i.d., and fexofenadine. PAIN CLINIC ASSESSMENT AND PQRS: 1. The patient has a history of osteoarthritis. He has some arthritic changes in his back and has undergone surgery with instrumentation. 2. The patient is not being treated for rheumatoid arthritis. 3. Height 5 feet 10 inch, weight 209 pounds, BMI is 30. 4. Vital signs: Blood pressure 126/86, heart rate 71, respiratory rate 16, and room air saturation 95%. 5. Temperature 97.1. 6. Pain score 1-2/10. 7. Fall history: The patient has not fallen in the last 3 months. 8. Blood thinner. The patient is not on a blood thinning medication. 9. Hypertension. The patient is not being treated for hypertension. 10. Opioids greater than 6 weeks. The [place] [address] PAIN MANAGEMENT CONSULTATION Name: STEPHANIE LOMBARDI Room: [facility]#: [id number] Admission: 10/23/19 Attend Phys: Samina Henderson MD Discharge: Date of : 52 Report #: [id number] source the Pain Clinic. 11. Functional assessment tool reviewed. 12. Recreational drug use. The patient denies. 13. Tobacco: The patient denies. 14. Alcohol. The patient denies use of alcoholic beverages except on occasion. PHYSICAL EXAMINATION: GENERAL: The patient is a well-developed, well-nourished white male. Appears his stated age. He is alert and oriented x 3. His affect is appropriate. Speech is fluent. HEENT: Normocephalic, atraumatic. Extraocular eye muscles intact. Sclerae nonicteric. Mucous membranes are moist. The patient is wearing a facial covering. NECK: Without adenopathy or JVD. HEART: Regular rate. S1, S2. LUNGS: Clear to auscultation. ABDOMEN: Nontender. Bowel sounds present. MUSCULOSKELETAL: Without significant scoliosis, kyphosis or lordosis. The patient has a well-healed scar in the lower portion of his back, which is somewhat extensive going from L1 down to the sacrum. The patient also has pain and discomfort in the L4-L5 dermatomal distribution on the left as well as the right side. IMPRESSION: 1. History of back pain, status post fusion at L4 through S1. 2. Bronchitis. 3. Allergic rhinitis. 4. Idiopathic peripheral neuropathy. 5. Hyperlipidemia. 6. Spinal stenosis of lumbar spine. 7. Mixed anxiety disorder. 8. Obstructive sleep apnea. 9. Seasonal allergic rhinitis. 10. Chronic obstructive pulmonary disease. RECOMMENDATIONS: We discussed treatment options with the patient. Risks and benefits of a transforaminal epidural steroid injection on the left and the right side were again discussed. Possible complications of the procedures which could include infection, worsening of pain, no improvement in pain, nerve damage, bleeding, headache were discussed and the patient elects to proceed. We also discussed the problems with COVID-19. Steroid injections can decrease to immune response. Should the patient become infected with COVID-19, he may have a more difficult course. He elects to proceed. PROCEDURE NOTE: The patient was taken to the procedure area. He was then assisted in getting on examination table. A fluoroscope was used anterior, [place] [address] PAIN MANAGEMENT CONSULTATION Name: STEPHANIE LOMBARDI Room: [facility]#: [id number] Admission: 10/23/19 Attend Phys: Samina Henderson MD Discharge: Date of : 52 Report #: [id number] posterior as well as lateral to visualize the appropriate placement of the needles. The patient's back had been sterilely prepped with a Betadine solution and allowed to dry. The right side in the area of the right transforaminal area at L4-L5 was identified. A skin wheal was placed using 2% bupivacaine. A 20-gauge spinal needle was then advanced into the area of the transforaminal L4 zone. After appropriate placement, a total of 80 mg Depo-Medrol was injected with 2 mL of 0.25% bupivacaine. The left side was treated in a like fashion. A skin wheal was placed at the L4-L5 interspace in the transforaminal zone. A 20-gauge spinal needle was then advanced into the area of the left transforaminal area at L4-L5. Aspiration was negative. A total of 80 mg Depo-Medrol was injected. A total of 2 mL 0.25% bupivacaine was injected. The patient tolerated the procedure well. He walked with an assisted to the recovery area where he remained for a period of time. He did note some tingling in the lower extremities, remained until the patient was able to walk with no problems. He will follow up in the future as needed. We would like to thank you for letting us participate in his care. We hope he continues to improve. <ELECTRONICALLY SIGNED> By: Samina Henderson MD 10/25/19 1021 1520 0049N. Bebo Henderson MD /nt
== END | disposition home or self-care (01) ==
LOC: M.PC 11:58
PROVIDERS: ATTEND Anesthesiology Pain Medicine
DX: M54.5 Low back pain (principal); J40 Bronchitis, not specified as acute or chronic; E78.5 Hyperlipidemia, unspecified; G47.33 Obstructive sleep apnea (adult) (pediatric); J44.9 Chronic obstructive pulmonary disease, unspecified; Z79.899 Other long term (current) drug therapy; Z88.8 Allergy status to other drugs, medicaments and biological substances